=== PATIENT | male | born 1965 | race Caucasian/White ===

== ENCOUNTER 2022-04-07 07:59 | Outpatient (CLI) | payer OTHER | END 2022-04-07 08:14 | disposition home or self-care (01) | LOC: RX STUDY 07:59 | DX: R10.9 Unspecified abdominal pain (principal); R19.4 Change in bowel habit; Z93.3 Colostomy status; K43.9 Ventral hernia without obstruction or gangrene ==

== ENCOUNTER 2022-07-06 08:45 | Inpatient (IN) | payer OTHER ==
[~2022-07-06] VITALS: Ht 170.2 cm; Wt 93.0 kg
[2022-07-13] MEDS ORDERED: OXYC1TAB9 PO (18:01)
== END 2022-07-13 23:18 | disposition home or self-care (01) | DRG 330 ==
LOC: O/R 07-08 05:30 → SURH 07-08 05:30
PROVIDERS: Surgery; ADMIT Surgery; ATTEND Surgery
PROC: 0DQE4ZZ Repair Large Intestine, Percutaneous Endoscopic Approach (ICD-10-PCS; 2022-07-08)
PROC: 0DNW4ZZ Release Peritoneum, Percutaneous Endoscopic Approach (ICD-10-PCS; 2022-07-08)
PROC: 0DB84ZZ Excision of Small Intestine, Percutaneous Endoscopic Approach (ICD-10-PCS; 2022-07-08)
PROC: 0DQ84ZZ Repair Small Intestine, Percutaneous Endoscopic Approach (ICD-10-PCS; 2022-07-08)
PROC: 0DBU4ZZ Excision of Omentum, Percutaneous Endoscopic Approach (ICD-10-PCS; 2022-07-08)
PROC: 0WQF0ZZ Repair Abdominal Wall, Open Approach (ICD-10-PCS; 2022-07-08)
PROC: 0KXL0ZZ Transfer Left Abdomen Muscle, Open Approach (ICD-10-PCS; 2022-07-08)
PROC: 0KXK0ZZ Transfer Right Abdomen Muscle, Open Approach (ICD-10-PCS; 2022-07-08)
PROC: 0DJD8ZZ Inspection of Lower Intestinal Tract, Via Natural or Artificial Opening Endoscopic (ICD-10-PCS; 2022-07-08)
PROC: 0DTN4ZZ Resection of Sigmoid Colon, Percutaneous Endoscopic Approach (ICD-10-PCS; principal; 2022-07-08 09:00)
PROC: 0DBP4ZZ Excision of Rectum, Percutaneous Endoscopic Approach (ICD-10-PCS; 2022-07-08 09:00)
DX: K57.50 Diverticulosis of both small and large intestine without perforation or abscess without bleeding (principal); K42.0 Umbilical hernia with obstruction, without gangrene; K63.2 Fistula of intestine; K91.71 Accidental puncture and laceration of a digestive system organ or structure during a digestive system procedure; K43.0 Incisional hernia with obstruction, without gangrene; Z43.3 Encounter for attention to colostomy; K43.5 Parastomal hernia without obstruction or gangrene; K66.0 Peritoneal adhesions (postprocedural) (postinfection)